=== PATIENT | female | born 1970 | race Two or more races ===

== ENCOUNTER 2017-09-11 20:45 | Emergency (ER) | payer OTHER ==
--- NOTE | 2017-09-11 20:49 | PDOC ---
Rapid Medical Evaluation Time Seen by Provider: 09/11/17 20:47 Medical Evaluation: Allergies Allergy/AdvReac Type Severity Reaction Status Date / Time No Known Allergies Allergy Verified 10/08/15 13:03 09/11/17 20:47 I have performed a brief in person evaluation of this patient. The patient presents with chief complaint of : boils painful and dark colored to inner thigh, some have ruptured . pain 10/10 taking ampicillin day 4. Pertinent PE findings: none I have ordered the following: The patient will proceed to the ER for further evaluation. Discharge Disposition - Referrals Referrals: Gadiel Gamez MD [Primary Care Provider] - - Patient Instructions - Post Discharge Activity
[2017-09-11 20:50] VITALS: BP 123/69; PULSE 76; TEMP 97.7; BMI 22.3
--- NOTE | 2017-09-11 23:45 | PDOC ---
History of Present Illness <Brady Guerrero - Last Filed: 09/12/17 00:26> - General History Source: Patient Exam Limitations: No Limitations - History of Present Illness Initial Comments: 09/12/17 06:40 Patient is a 46 year old female with a significant past medical history of COPD , eczema who presents to the ED with complaints of boil formation that began 7 days ago. Patient reports noticing boils on upper thigh, inner left buttock and lower right buttock. She reports seeing [facility] on Monday afternoon and was prescribed ampicillin antibiotic 500 mg by physician for 5 days which she has been compliant with (today is day 01/11). Patient reports the 2 posterior abscesses ruptured monday afternoon while at home and have been draining green pus. Pt reports that she has had a flare of her eczema recently over the areas with the abscesses and admits to frequently scratching those areas. She also reports her son had a recent MRSA infection to his face. Denies chest pain, SOB. Denies fever, chills. Denies contact with a sick individual, out of state travel. Denies any other symptoms. Allergies: Shrimp, codeine Social history: Current smoker. Social history. No illicit drugs. Surgical history: C- section, gastrectomy (5 years ago) PMD: Dr. Gadiel Gamez <Delbert Vail - Last Filed: 09/12/17 06:41> - General Chief Complaint: Abscess Boil Stated Complaint: PAIN Time Seen by Provider: 09/11/17 20:47 Past History - Past Medical History Asthma: Yes COPD: Yes Psychiatric Problems: Yes (ANXIETY) - Surgical History GI Surgery: Yes (SLEEVE GASTRECTOMY) - Suicide/Smoking/Psychosocial Hx Smoking History: Current every day smoker Have you smoked in the past 12 months: Yes Number of Cigarettes Smoked Daily: 10 Information on smoking cessation initiated: No Hx Alcohol Use: No Drug/Substance Use Hx: No Substance Use Type: None <Brady Guerrero - Last Filed: 09/12/17 00:26> <Delbert Vail - Last Filed: 09/12/17 06:41> - Past Medical History Allergies/Adverse Reactions: Allergies Allergy/AdvReac Type Severity Reaction Status Date / Time codeine Allergy Verified 09/11/17 20:47 Home Medications: Ambulatory Orders Albuterol 0.083% Nebulizer Laurel [Ventolin 0.083% Nebulizer Soln -] 1 amp IN ASDIR PRN #1 amp 10/05/15 Albuterol 0.083% Nebulizer Laurel [Ventolin 0.083% Nebulizer Soln -] 1 neb NEB ONCE PRN #1 vial 10/05/15 Azithromycin [Zithromax Z-RAQUEL (5 DAYS) -] 250 mg PO ASDIR #6 tablet 10/05/15 Bupropion HCl [Wellbutrin -] 100 mg PO BID 10/05/15 Cetirizine HCl [Zyrtec -] 10 mg PO DAILY #7 tablet 10/05/15 Prednisone [Deltasone] 20 mg PO BID #8 tablet 10/05/15 Ibuprofen [Motrin -] 800 mg PO TID #30 tablet 10/08/15 Clindamycin HCl 300 mg PO Q6H #42 capsule 09/12/17 Naproxen [Naprosyn -] 500 mg PO BID PRN #14 tablet 09/12/17 Review of Systems - Review of Systems Able to Perform ROS?: Yes Comments:: 09/12/17 06:40 GENERAL/CONSTITUTIONAL: No fever or chills. No weakness. HEAD, EYES, EARS, NOSE AND THROAT: No change in vision. No ear pain or discharge. No sore throat. GASTROINTESTINAL: No nausea, vomiting, diarrhea or constipation. GENITOURINARY: No dysuria, frequency, or change in urination. CARDIOVASCULAR: No chest pain or shortness of breath. RESPIRATORY: No cough, wheezing, or hemoptysis. MUSCULOSKELETAL: No joint or muscle swelling or pain. No neck or back pain. SKIN: +LE abscess x3. NEUROLOGIC: No headache, vertigo, loss of consciousness, or change in strength/ sensation. ENDOCRINE: No increased thirst. No abnormal weight change. HEMATOLOGIC/LYMPHATIC: No anemia, easy bleeding, or history of blood clots. ALLERGIC/IMMUNOLOGIC: No hives or skin allergy. All Other Systems: Reviewed and Negative <Delbert Vail - Last Filed: 09/12/17 06:41> *Physical Exam - Vital Signs Last Vital Signs Temp Pulse Resp BP Pulse Ox 97.7 F 76 18 123/69 99 09/11/17 20:48 09/11/17 20:48 09/11/17 20:48 09/11/17 20:48 09/11/17 20:48 <Brady Guerrero - Last Filed: 09/12/17 00:26> - Vital Signs Last Vital Signs Temp Pulse Resp BP Pulse Ox 97.7 F 76 18 123/69 99 09/11/17 20:48 09/11/17 20:48 09/11/17 20:48 09/11/17 20:48 09/11/17 20:48 - Physical Exam Comments: 09/12/17 06:40 GENERAL: Awake, alert, and fully oriented, in no acute distress HEAD: No signs of trauma EYES: PERRLA, EOMI, sclera anicteric, conjunctiva clear ENT: Auricles normal inspection, hearing grossly normal, nares patent, oropharynx clear without exudates. Moist mucosa NECK: Normal ROM, supple, no lymphadenopathy, JVD, or masses LUNGS: Breath sounds equal, clear to auscultation bilaterally. No wheezes, and no crackles HEART: Regular rate and rhythm, normal S1 and S2, no murmurs, rubs or gallops ABDOMEN: Soft, nontender, normoactive bowel sounds. No guarding, no rebound. No masses EXTREMITIES: +Anterior upper thigh abscess 4.5 cm of fluctuance with cellulitis expanding about 9x8cm. Medial L upper buttock and medial R lower buttock with dressed abcesses with scant mucopurulent drainage on guaze. Normal range of motion, no edema. No clubbing or cyanosis. No cords, erythema, or tenderness NEUROLOGICAL: Normal speech, cranial nerves intact, negative pronator drift, 5/ 5 strength in all 4 extremities, normal sensation to light touch in all 4 extremities, normal cerebellar exam, normal gait, normal reflexes and tone SKIN: Warm, Dry, normal turgor, no rashes or lesions noted. <Delbert Vail - Last Filed: 09/12/17 06:41> Medical Decision Making - Medical Decision Making 09/11/17 23:42 46-year-old female with a history of COPD presents with multiple abscesses on her right lower extremity. Vitals are unremarkable. Exam with large abscess to the right anterior thigh and two draining abscesses on the right buttock. Risk factors for MRSA include her son with a similar abscess recently. Patient also has eczema and is frequently scratching her eczematous lesions which are in the areas where her abscesses are located. Will I&D the anterior abscess and likely DC the pt with clindamycin for MRSA cvg with close f/u and return precautions. 09/12/17 00:27 Anterior thigh abscess drained with copious purulent discharge expressed. Curved clamp used to explore and break up loculations and wound was packed with sterile packing gauze. Patient given clindamycin and will be discharged to follow-up with primary care doctor within 1-2 days. I discussed the physical exam findings, ancillary test results and final diagnoses with the patient. I answered all of the patient's questions. The patient was satisfied with the care received and felt comfortable with the discharge plan and treatment plan. The patient will call their primary care physician within 24 hours to arrange follow-up and will return to the Emergency Department with any new, persistent or worsening symptoms. <Brady Guerrero - Last Filed: 09/12/17 00:26> *DC/Admit/Observation/Transfer - Discharge Dispostion Admit: No - Attestations Physician Attestion: 09/12/17 00:31 I, Dr. Brady Guerrero MD, attest that this document has been prepared under my direction and personally reviewed by me in its entirety. I further attest, that it accurately reflects all work, treatment, procedures and medical decision -making performed by me. <Brady Guerrero - Last Filed: 09/12/17 00:26> - Attestations Scribe Attestion: 09/12/17 06:41 Documentation prepared by Delbert Vail, acting as medical oncologist for Brady Guerrero MD, /DO. <Delbert Vail - Last Filed: 09/12/17 06:41> Diagnosis at time of Disposition: Abscess - Discharge Dispostion Disposition: HOME Condition at time of disposition: Stable - Prescriptions Prescriptions: Clindamycin HCl 300 mg PO Q6H #42 capsule Naproxen [Naprosyn -] 500 mg PO BID PRN #14 tablet PRN Reason: Pain - Referrals Referrals: Gadiel Gamez MD [Primary Care Provider] - - Patient Instructions Printed Discharge Instructions: DI for Incision and Drainage of a Skin Abscess Additional Instructions: Take the antibiotics (clindamycin) as prescribed. Follow up with your primary care doctor within 1-2 days. Return to the emergency department for any new, worsening or concerning symptoms such as fever or increasing redness. - Post Discharge Activity Forms/Work/School Notes: Back to Work
[2017-09-11] MEDS ORDERED: CLINDAMYCIN HCL 300 MG CAPSULE PO ONE (23:48)
[2017-09-12] MEDS ORDERED: CLINDAMYCIN HCL 150 MG CAPSULE (FP) ONE (00:49)
--- NOTE | 2017-09-13 17:56 | PDOC ---
Suture Removal/Wound Check HPI - History of Present Illness Chief Complaint: Abscess Boil Stated Complaint: PAIN Time Seen by Provider: 09/11/17 20:47 History Source: Yes: Patient Exam Limitations: Yes: No Limitations Treated at: [facility] ED (09/11/17) - Previous ED Treatment Type of procedure performed on last visit: Yes: I&D of Abscess Antibiotics Prescribed: Yes (clindamycin 300 mg q6hrs ) - Onset of Previous Treatment Date of Occurence: 09/11/17 Comment:: 09/13/17 17:58 see other note on this pt completed by Adelaida RAMIREZ Past History - Past Medical History Allergies/Adverse Reactions: Allergies Allergy/AdvReac Type Severity Reaction Status Date / Time codeine Allergy Verified 09/11/17 20:47 Home Medications: Ambulatory Orders Albuterol 0.083% Nebulizer Laurel [Ventolin 0.083% Nebulizer Soln -] 1 amp IN ASDIR PRN #1 amp 10/05/15 Albuterol 0.083% Nebulizer Laurel [Ventolin 0.083% Nebulizer Soln -] 1 neb NEB ONCE PRN #1 vial 10/05/15 Azithromycin [Zithromax Z-RAQULE (5 DAYS) -] 250 mg PO ASDIR #6 tablet 10/05/15 Bupropion HCl [Wellbutrin -] 100 mg PO BID 10/05/15 Cetirizine HCl [Zyrtec -] 10 mg PO DAILY #7 tablet 10/05/15 Prednisone [Deltasone] 20 mg PO BID #8 tablet 10/05/15 Ibuprofen [Motrin -] 800 mg PO TID #30 tablet 10/08/15 Clindamycin HCl 300 mg PO Q6H #42 capsule 09/12/17 Naproxen [Naprosyn -] 500 mg PO BID PRN #14 tablet 09/12/17 Asthma: Yes COPD: Yes Psychiatric Problems: Yes (ANXIETY) - Surgical History GI Surgery: Yes (SLEEVE GASTRECTOMY) - Suicide/Smoking/Psychosocial Hx Smoking History: Current every day smoker Have you smoked in the past 12 months: Yes Number of Cigarettes Smoked Daily: 10 Information on smoking cessation initiated: No Hx Alcohol Use: No Drug/Substance Use Hx: No Substance Use Type: None *DC/Admit/Observation/Transfer Diagnosis at time of Disposition: Abscess - Discharge Dispostion Disposition: HOME Condition at time of disposition: Stable - Prescriptions Prescriptions: Clindamycin HCl 300 mg PO Q6H #42 capsule Naproxen [Naprosyn -] 500 mg PO BID PRN #14 tablet PRN Reason: Pain - Referrals Referrals: Gadiel Gamez MD [Primary Care Provider] - - Patient Instructions Printed Discharge Instructions: DI for Incision and Drainage of a Skin Abscess Additional Instructions: Take the antibiotics (clindamycin) as prescribed. Follow up with your primary care doctor within 1-2 days. Return to the emergency department for any new, worsening or concerning symptoms such as fever or increasing redness. - Post Discharge Activity Forms/Work/School Notes: Back to Work
== END 2017-09-12 00:56 | disposition home or self-care (01) ==
LOC: JER 20:45
PROC: 0H9KXZZ Drainage of Right Lower Leg Skin, External Approach (ICD-10-PCS; principal; 2017-09-11)
DX: L02.415 Cutaneous abscess of right lower limb (principal); J44.9 Chronic obstructive pulmonary disease, unspecified; L30.9 Dermatitis, unspecified; F41.9 Anxiety disorder, unspecified; Z98.84 Bariatric surgery status; F17.210 Nicotine dependence, cigarettes, uncomplicated
CPT/HCPCS: 87070; 87186; 87205; 99281-25